=== PATIENT | female | born 1930 | race Caucasian/White ===

== ENCOUNTER → 2017-01-13 | Outpatient (CLI) | payer MEDICARE, BC ==
[~2017-01-13] MED LIST: ALDACTONE25 MG PO; ASPIRIN325 MG PO; COLACE100 MG PO; COREG6.25 MG PO; COUMADIN3 MG PO; LASIX40 MG PO; MULTI-VITAMIN1 EACH PO; NEURONTIN100 MG PO; NPLATE250 MCG SUBCUT; PRINIVIL5 MG PO; SYNTHROID112 MCG PO; TRAVATAN Z5 ML EARBOTH; TRIAMCINOLONE A15 GM TOP; VITAMIN D-32000 UNIT PO; XALATAN 0.005%2.5 ML EYEBOTH; ZOCOR40 MG PO; ZYLOPRIM300 MG PO
== END | disposition short-term general hospital (02) ==
LOC: CLCARD 09:35
DX: I11.0 Hypertensive heart disease with heart failure (principal); I50.9 Heart failure, unspecified; I48.2 Chronic atrial fibrillation; D69.3 Immune thrombocytopenic purpura; I87.2 Venous insufficiency (chronic) (peripheral); E66.01 Morbid (severe) obesity due to excess calories; Z79.82 Long term (current) use of aspirin; Z79.899 Other long term (current) drug therapy; Z86.73 Personal history of transient ischemic attack (TIA), and cerebral infarction without residual deficits

== ENCOUNTER → 2017-01-30 | Outpatient (CLI) | payer MEDICARE, BC | END | disposition short-term general hospital (02) | LOC: CLVASC 02:17 | DX: L97.929 Non-pressure chronic ulcer of unspecified part of left lower leg with unspecified severity (principal) ==

== ENCOUNTER → 2017-02-23 | Outpatient (CLI) | payer MEDICARE, BC | END | disposition short-term general hospital (02) | LOC: CLCARD 08:20 → CLVASC 08:20 → CLCARD 11:20 | DX: L97.921 Non-pressure chronic ulcer of unspecified part of left lower leg limited to breakdown of skin (principal); I89.0 Lymphedema, not elsewhere classified; L97.911 Non-pressure chronic ulcer of unspecified part of right lower leg limited to breakdown of skin ==

== ENCOUNTER → 2017-03-23 | Outpatient (CLI) | payer MEDICARE, BC | END | disposition short-term general hospital (02) | LOC: CLVASC 03-21 11:56 | DX: L97.221 Non-pressure chronic ulcer of left calf limited to breakdown of skin (principal); I89.0 Lymphedema, not elsewhere classified ==

== ENCOUNTER 2017-04-09 08:58 | Emergency (ER) | payer MEDICARE, BC ==
[~2017-04-09] VITALS: Ht 162.6 cm; Wt 119.7 kg
[~2017-04-09 08:58] MED LIST changes: -NPLATE250 MCG SUBCUT; -TRIAMCINOLONE A15 GM TOP; -XALATAN 0.005%2.5 ML EYEBOTH
[2017-05-15] MEDS ORDERED: XALATAN 0.005%2.5 ML EYEBOTH (13:35)
[2017-05-15] MEDS ORDERED: NPLATE250 MCG SUBCUT (13:38)
[2017-06-01] MEDS ORDERED: TRIAMCINOLONE A15 GM TOP (13:46)
== END 2017-04-09 11:10 | disposition short-term general hospital (02) ==
LOC: ER 08:58
DX: M79.602 Pain in left arm (principal); R60.1 Generalized edema; I48.91 Unspecified atrial fibrillation; I50.9 Heart failure, unspecified; N18.9 Chronic kidney disease, unspecified; M10.9 Gout, unspecified; E03.9 Hypothyroidism, unspecified; E78.5 Hyperlipidemia, unspecified; D69.3 Immune thrombocytopenic purpura; M19.90 Unspecified osteoarthritis, unspecified site; D64.9 Anemia, unspecified; Z86.718 Personal history of other venous thrombosis and embolism; Z90.49 Acquired absence of other specified parts of digestive tract; Z95.0 Presence of cardiac pacemaker; Z96.651 Presence of right artificial knee joint; Z79.82 Long term (current) use of aspirin; Z79.01 Long term (current) use of anticoagulants; Z79.899 Other long term (current) drug therapy; Z88.5 Allergy status to narcotic agent; Z88.1 Allergy status to other antibiotic agents; Z88.8 Allergy status to other drugs, medicaments and biological substances; Z88.2 Allergy status to sulfonamides
CPT/HCPCS: J2930

== ENCOUNTER → 2017-04-13 | Outpatient (CLI) | payer MEDICARE, BC ==
[~2017-04-13] MED LIST changes: +NPLATE250 MCG SUBCUT; +TRIAMCINOLONE A15 GM TOP; +XALATAN 0.005%2.5 ML EYEBOTH
== END | disposition short-term general hospital (02) ==
LOC: CLNEPH 12:48
DX: I13.0 Hypertensive heart and chronic kidney disease with heart failure and stage 1 through stage 4 chronic kidney disease, or unspecified chronic kidney disease (principal); I50.22 Chronic systolic (congestive) heart failure; N18.3 Chronic kidney disease, stage 3 (moderate); N17.8 Other acute kidney failure; G47.33 Obstructive sleep apnea (adult) (pediatric)

== ENCOUNTER → 2017-04-20 | Outpatient (CLI) | payer MEDICARE, BC | END | disposition short-term general hospital (02) | LOC: CLVASC 09:19 | DX: L97.829 Non-pressure chronic ulcer of other part of left lower leg with unspecified severity (principal); L97.919 Non-pressure chronic ulcer of unspecified part of right lower leg with unspecified severity; I89.0 Lymphedema, not elsewhere classified ==

== ENCOUNTER 2017-06-10 09:57 | Emergency (ER) | payer MEDICARE, BC ==
[~2017-06-10] VITALS: Ht 162.6 cm; Wt 117.0 kg
== END 2017-06-10 10:45 | disposition short-term general hospital (02) ==
LOC: ER 09:57
DX: N39.0 Urinary tract infection, site not specified (principal); I48.91 Unspecified atrial fibrillation; N18.9 Chronic kidney disease, unspecified; I50.9 Heart failure, unspecified; Z79.82 Long term (current) use of aspirin; Z79.01 Long term (current) use of anticoagulants; Z79.899 Other long term (current) drug therapy; Z88.1 Allergy status to other antibiotic agents; Z88.2 Allergy status to sulfonamides; Z88.5 Allergy status to narcotic agent; Z88.8 Allergy status to other drugs, medicaments and biological substances; Z91.048 Other nonmedicinal substance allergy status